=== PATIENT | female | born 1980 | race Caucasian/White ===

== ENCOUNTER → 2023-05-20 10:25 | Outpatient (CLI) | payer OTHER, SELFPAY ==
--- NOTE | ~2023-05-20 | XR_ITS ---
Clinical Indication: Cough PA and lateral views of the chest: Comparison: None Findings: The lungs are clear, without evidence of focal consolidation or pleural effusion. Cardiome diastinal silhouette is within normal limits. Calcified left hilar lymph nodes are present. Bones and soft tissues are unremarkable. Impression: Clear lungs. Calcified left hilar lymph nodes. Reviewed, dictated and finalized at location . Impression: Clear lungs. Calcified left hilar lymph nodes.
== END ==
PROVIDERS: PCP Physician Assistant; Visit Provider Physician Assistant
DX: R09.81 Nasal congestion (principal); R05.9 Cough, unspecified; R91.8 Other nonspecific abnormal finding of lung field
CPT/HCPCS: 71046